=== PATIENT | female | born 1975 | race Caucasian/White ===

== ENCOUNTER 2018-08-01 12:04 | Day surgery (SDC) | payer OTHER ==
[2018-08-01] MEDS ORDERED: PROPOFOL 20 ML ×2 (12:56→13:06)
[2018-08-01] MEDS ORDERED: LIDOCAINE 100 MG SYRINGE (12:56)
[2018-08-01] MEDS ORDERED: FENTAnyl 50 MCG/ML VIAL (13:06)
== END 2018-08-01 15:14 | disposition home or self-care (01) ==
LOC: GIL 12:04
DX: R19.7 Diarrhea, unspecified (principal); K59.00 Constipation, unspecified; K29.50 Unspecified chronic gastritis without bleeding
CPT/HCPCS: 43239; 84703; 88305; 88312